=== PATIENT | male | born 1995 | race Caucasian/White ===

== ENCOUNTER 2016-11-24 19:27 | Emergency (ER) | payer MEDICAID ==
[~2016-11-24] VITALS: Ht 188 cm; Wt 88.5 kg
[~2016-11-24 19:27] MED LIST: HYDROCODONE1 TABLET PO
--- NOTE | 2016-11-24 20:28 | Emergency Room Report ---
History of Present Illness Time Seen by [id number] Presenting Problem in Triage Pt arrived:Walked Presenting Problem:CAUGHT A RACCOON IN TRAP, GOT BITE ON RIGHT HAND [address] DIGIT. SMALL AMOUNT O BLEEDING PRESENT Onset of symptoms date/time:11/24/16 or onset unknown for: Treatment Prior to Arrival: HOUSEHOLD ASSISTANT Provided by: Sepsis Risk Assessment: Temp: 98.9 B/P: 150/74 MAP: 114 Pulse: 59 Resp: 18 Recent fever? N Clinical Suspician of Infection? N Mental Status: 1 - Regular (Normal Baseline) Sepsis Risk:Low Sepsis Risk Have you (or family members/close friends) recently traveled outside the [place]? N If Yes, where/when: Have you had exposure to infectious disease within the past month? N TB? Other? Specify: Source patient, RN notes reviewed, family, old records Exam Limitations no limitations Comment strange acting raccoon bite rt middle finger about 1630 Cardiac Chest Pain Chest pain indicative of cardiac No Timing/Duration this evening Severity moderate ALLERGIES Coded Allergies: No Known Allergies (11/24/16) Home Medications Reported Medications No Known Home Medications History Medical History General CAD? No Angina: No VA: No Hypertension? No Hyperlipidemia? No CHF? No DVT? No PE? No COPD? No Asthma? No Anemia? No GERD? No Gastric ulcers? No GI Bleed? No Hernia? No Thyroid Problems? No Hypothyroidism? No CVA? No Seizures? No Diabetes? No Renal Insuffiency? No End Stage Renal Disease? No UTI? No Stones? No BPH? No GB Disease: No Nephritic Syndrome? No Asplenia? No Hepatitis? No Sickle Cell Disease? No Arthritis? No Migraines? No Cataracts? No Glaucoma? No MRSA? No HIV? No TB? No Anxiety? No Depression? No Cancer? No More? No Immunization Hx DT/Tetanus Unknown Surgical Hx Previous Surgery?N Social History Smoking Hx Smoker: Never Smoker Tobacco: No Alcohol Alcohol: No Drugs none Review of Systems All Other Systems Reviewed and Negative Constitutional denies fever Eyes denies drainage ENT denies: ear discharge, epistaxis, throat pain. Respiratory denies cough, denies shortness of breath, denies wheezing Cardiovascular denies chest pain, denies syncope Gastrointestinal denies abdominal pain, denies diarrhea, denies vomiting Genitourinary denies: dysuria, frequency, hesitancy, hematuria. Musculoskeletal denies back pain, denies joint pain, denies joint swelling, denies neck pain Skin see HPI, denies rash, other Psychiatric/Neurological denies headache, denies seizure Physical Exam Vital Signs Vital Signs Date Time Temp Pulse Resp B/P Pulse O2 O2 Flow FiO2 Ox Delivery Rate 11/24 2017 59 18 150/74 99 11/24 1933 98.9 69 18 154/94 99 - WBC >12,000 or <4,000 or 10% bands? 2 or more SIRS Criteria Met? B/P:150/74 MAP:114 Creatinine >2.0? UA output<0.5ml/kg/hr for 2 hrs? Platelet count >100,000? Lactate >2.0mmol/1? INR >1.2 or PTT > than 60 sec? Evidence of Organ Dysfunction? Provider documented clinical suspician of infection? N Sepsis Criteria Count: 0 Sepsis Risk: Low Sepsis Risk General Appearance no apparent distress Eye Exam - bilateral eye PERRL, bilateral eye EOMI Ear, Nose, Throat normal ENT inspection Neck supple Respiratory Status No: respiratory distress. Cardiovascular regular rate/rhythm Peripheral Pulses Pulses normal Yes Neurologic alert, staffing associate II-XII nml as tested, no motor/sensory deficits Reflexes Reflexes normal Yes Mental status normal mood/affect Skin bite distal rt middle finger Medical Decision Making LABS/Meds/Orders Pt receiving controlled substance in ED? No Results/Orders Current Medication Orders Sig/Edson Start time Last Medication Dose Route Stop Time Status Admin Diphtheria/Pertussis/ 0.5 ML ONCE ONE 11/24 2044 DC 11/24 Tetanus Vacc IM 11/24 Diphtheria/Pertussis/ 0 .STK-MED ONE 11/24 2036 DC Tetanus Vacc IM Departure Departure Time of Disposition 2100 Disposition DC Home or Self Care(routine) Clinical Impression Primary Impression: Raccoon bite Qualifiers: Encounter type: initial encounter Qualified Code: W55.51XA - Bitten by raccoon, initial encounter Condition STABLE Referrals JANEE PAGAN (Family) Patient Instructions DI for Rabies Vaccine Additional Instructions go to [facility] for post exposure rabies Discharge Counseling Counseled pt/family regarding diagnosis, test results, follow up needs Prescriptions Current Visit Scripts No Known Home Medications ED Critical Care Critical Care No at 2103
[2016-11-24 21:08] VITALS: BP 150/74
== END 2016-11-24 21:09 | disposition home or self-care (01) ==
LOC: ER 19:27
DX: S61.232A Puncture wound without foreign body of right middle finger without damage to nail, initial encounter (principal); W55.51XA Bitten by raccoon, initial encounter; Z23 Encounter for immunization